=== PATIENT | female | born 1990 | race Caucasian/White ===

== ENCOUNTER 2018-01-05 20:26 | Emergency (ER) | payer OTHER ==
[~2018-01-05] VITALS: Ht 160 cm; Wt 79.0 kg
[2018-01-05 20:35] VITALS: BP 117/70
[2018-01-05] MEDS ORDERED: CEPH-571 PO (20:59)
== END 2018-01-05 21:07 | disposition home or self-care (01) ==
LOC: ER 20:27
DX: L03.311 Cellulitis of abdominal wall (principal); Z88.6 Allergy status to analgesic agent
CPT/HCPCS: 99283

== ENCOUNTER 2018-10-28 01:33 | Emergency (ER) | payer SELFPAY ==
[~2018-10-28] VITALS: Ht 149.9 cm; Wt 76.5 kg
[~2018-10-28 01:33] MED LIST: CEPH-571 PO
[2018-10-28 01:39] VITALS: BP 112/79
--- NOTE | 2018-10-28 02:37 | NUR ---
DISCUSSED PT'S PAIN WITH EDMD GORMAN; NEW ORDER RECEIVED FOR IBUPROFEN AND TORADOL.
[2018-10-28] MEDS ORDERED: ibuprofen tablet 400 MG TABLET PO ONE (02:40)
[2018-10-28] MEDS ORDERED: ketorolac trometh inj. 60 MG/2 ML VIAL IM ONE (02:40)
== END 2018-10-28 02:59 | disposition home or self-care (01) ==
LOC: ER 01:34
DX: M25.522 Pain in left elbow (principal); M79.602 Pain in left arm; Z79.899 Other long term (current) drug therapy; W01.0XXA Fall on same level from slipping, tripping and stumbling without subsequent striking against object, initial encounter; Y93.01 Activity, walking, marching and hiking; Y92.814 Boat as the place of occurrence of the external cause; Y99.8 Other external cause status
CPT/HCPCS: 73080; 96372; 99283; J1885

== ENCOUNTER 2019-05-03 09:56 | Emergency (ER) | payer BC ==
[~2019-05-03] VITALS: Ht 149.9 cm; Wt 72.3 kg
[2019-05-03 10:05] VITALS: BP 121/76
[2019-05-03] MEDS ORDERED: TETanus/Pertussis (Acell)/Diphther VAC/PF (Tdap-Adult) 0.5ml syringe IMVAC ONE (11:00)
[2019-05-03] MEDS ORDERED: AMOX-422 PO (11:02)
[2019-05-03] MEDS ORDERED: ibuprofen tablet 400 MG TABLET PO ONE (11:15)
== END 2019-05-03 11:24 | disposition home or self-care (01) ==
LOC: ER 09:57
DX: S61.231A Puncture wound without foreign body of left index finger without damage to nail, initial encounter (principal); S60.511A Abrasion of right hand, initial encounter; Z88.2 Allergy status to sulfonamides; W54.0XXA Bitten by dog, initial encounter; Y93.89 Activity, other specified; Y92.89 Other specified places as the place of occurrence of the external cause; Y99.9 Unspecified external cause status
CPT/HCPCS: 73130; 90471; 90715; 99283

== ENCOUNTER 2025-02-02 09:22 | Emergency (ER) | payer BC, OTHER ==
[~2025-02-02] VITALS: Ht 152.4 cm; Wt 79.3 kg
[~2025-02-02 09:22] MED LIST changes: +ALBU6.7H14 INH
[2025-02-02 09:42] VITALS: TEMP 98.4; O2SAT 100
[2025-02-02 10:14] LABS: URINE HCG NEGATIVE (NEG)
[2025-02-02 10:15] LABS: LEUKOCYTE ESTERASE ,URINE NEGATIVE (Neg); NITRITES, URINE NEGATIVE (Neg); OCCULT BLOOD,URINE TRACE-INTACT (Neg)
[2025-02-02] MEDS: ketorolac trometh 15mg/ml vial 15 MG/ML ML IM ONE (10:23)
[2025-02-02 10:25] LABS: UA COLLECTION TYPE CLN CATCH MIDSTREAM
[2025-02-02 10:36] LABS: SQUAMOUS EPITHELIAL CELL,UR MANY /LPF (FEW)
[2025-02-02 11:19] VITALS: BP 108/72; PULSE 77; RESP 13
--- NOTE | 2025-02-02 11:24 | Physician Documentation ---
History of Present Illness ~ Chief Complaint: Abdominal Pain Stated Complaint: POSS OVARIAN CYST Time Seen by MD: 09:55 OK to notify your PCP?: Yes Primary Medical Doctor: NILS Source: patient Mode of Arrival: POV Exam Limitations: no limitations HPI 34-year-old female presents with left-sided lower abdominal/pelvic pain. She does have a history of ovarian cysts and states this feels the same. She originally went into [facility] and was told to come here to rule out an ovarian torsion. Denies chance of . Last menstrual period 2 weeks ago. She has a history of having a very large ovarian cyst on the left side which needed to be surgically removed. Medication Reconciliation Allergies: Coded Allergies: Penicillins (Verified Allergy, Unknown, RASH, 02/02/25) Sulfa (Sulfonamide Antibiotics) (Verified Allergy, Unknown, 08/20/22) fluoxetine (Verified Allergy, Unknown, 08/20/22) morphine (Verified Allergy, Unknown, 08/20/22) sertraline (Verified Allergy, Unknown, 08/20/22) Scheduled Albuterol Sulfate (Proventil Hfa), 2 PUFFS INH Q6H Cephalexin (Keflex), 1 CAP PO Q6H Past Medical History Past Medical History: No Pertinent History Past Surgical History: no surgical history Drug Use: none Lives In: Home Occupation: employed Review of Systems All Other Systems at this time: Reviewed and Negative Physical Exam Vital Signs: RN Vital Signs have been reviewed: Yes, Temperature: 98.4, Source: Oral, Heart Rate: 77, Respiratory Rate: 13, BP: 108/72, Pulse Oximetry: 100, Weight: 79.300 Oxygen Flow Rate: 0 Pulse Oximetry Reflects: adequate oxygenation Physical Exam General: Alert, no apparent distress. HEENT: PERRL, EOMI, no injection, moist mucous membranes. Neck: Full range of motion. Respiratory: Lungs clear, no respiratory distress. Chest: No accessory muscle use. Cardiovascular: Regular rate and rhythm, no murmurs. Gastrointestinal: Soft, nondistended. Bowels sounds present. Palpation in left lower quadrant and over left ovary. Extremities: Normal range of motion, no deformity. Neurologic: Oriented x4. Psychiatric: Normal mood and affect. Skin: Normal color, warm and dry. No edema, no ecchymosis. Progress Results/Orders Reviewed/noted all lab results: Yes Results/Orders Orders - SHERMAN,DAVINA D TELEGRAPHIC SERVICE DISPATCHER Ultrasound Pelvis W/Orwo Dplx (02/02/25 09:52) Completed Orders - DAVINA JENNINGS TELEGRAPHIC SERVICE DISPATCHER Hcg, Ur Ql (02/02/25 09:48) Ketorolac Trometh 15mg/Ml Vial (Toradol (02/02/25 09:50) Ultrasound Pelvis W/Orwo Dplx (02/02/25 09:52) Ua W/Microscopic, Cult If Ind (02/02/25 09:55) Medications Received in ER Medications (Trade) Dose Ordered Sig/Pilar Route PRN Reason Start Time Stop Time Status Last Admin Dose Admin (Toradol injection) 15 mg ONCE ONCE IM 02/02/25 09:50 02/02/25 09:51 DC 02/02/25 10:23 15 MG Vital Signs 02/02/25 02/02/25 09:42 11:19 Temp 98.4 Pulse 86 77 Resp 16 13 B/P (MAP) 136/85 108/72 (84) Pulse Ox 100 O2 Flow Rate 0 0 Laboratory Tests Test 02/02/25 09:55 Urine Specimen Description Cln catch midstream Urine Color Yellow Urine Clarity Cloudy Urine pH 6.0 Urine Specific [place] 1.025 Urine Protein Negative Urine Glucose (UA) Negative Urine Ketones Negative Urine Occult Blood Trace-intact Urine Nitrite Negative Urine Bilirubin Negative Urine Urobilinogen 0.2 Urine Leukocyte Esterase Negative Urine RBC 0-2 Urine WBC 0-4 Urine Squamous Epithelial Cells Many Urine Bacteria 1+ Urine Culture Indicated Not ind Volume Urine Centrifuged 10 ml Urine HCG, Qualitative Negative Urine Comment EKG/XRAY/CT/US/VASC/MRI Ultrasound : Impression Pelvic ultrasound as interpreted by me shows: Small amount of free fluid in the pelvis lateralized on the left ovary/adnexa, normal Doppler of left ovary. 1.7 cm left ovarian cyst. No ovarian torsion Medical Decision Making Additional information obtaine: old records Findings History of left ovarian cyst with 1 need to be surgically removed. Toradol was administered for pain while in the department, with relief. There was a possibility of ovarian torsion for which we did ultrasound. Ultrasound shows there is a small 1.7 cm left ovarian cyst as well as some free fluid in the left pelvis ovarian area. There is good blood flow to that ovary with no evidence of torsion. Urinalysis is negative for blood or infection. Has a follow up appointment with her ironer or presser next week, advised to keep that appointment and return back here for any new or worsening symptoms. Urinary Diff Dx:Considerations: Include: Appendicitis, Bowel obstruction, Ova mariola torsion, Pyelonephritis, UTI Genital Diff Dx:Considerations: Include: Dsymenorrhea, Ectopic , Menorrhagia, Menometrorrhagia, Myomatous uterus Departure Disposition: 01 HOME / SELF CARE / HOMELESS Impression: Primary Impression: Cyst of left ovary Condition: Stable Discharge Instructions: Ovarian Cyst, [id number] Additional Instructions: Continue to follow up with your OBGYN as scheduled. Today your ultrasound shows a small ovarian cyst with some additional fluid around it. There is great blood flow to the left ovary, no evidence of torsion. Urinalysis was negative for i nfection or blood. Return back here for any new or worsening symptoms. Referrals: NO PRIMARY CARE PROVIDER (PCP) Education Educated: Patient Educated regarding: diagnosis, treatment, prognosis, need for follow up Additional Comment Medical Screen Exam This patient recieved a medical screening examination. After reviewing the individual's medical complaints with presenting symptoms and performing an appropriate physical examination, it was determined that no immediate life- threatening emergency medical condition is present. This individual is also not a women having contractions. Signature Scribe Signature: . Attestation: Scribed for Davina Jennings by Davina Moses NP . 02/02/25 11:45 Parts of this note were created using [employer] voice recognition software program. While efforts were made to correct any mistakes made by this voice recognition software program, nonsensical phrases may remain in this note. In addition, there may be errors and syntax, grammar, content and spelling. DAVINA JENNINGS Feb 02, 2025 11:24
--- NOTE | 2025-02-02 11:28 | RADIOLOGY REPORT ---
Technique: Real-time ultrasound images through the pelvis using a transabdominal transducer. For better evaluation of the ovaries and endometrial stripe, an endovaginal transducer was used. Indication: r/o left ovary cyst vs torsion Comparison: None Findings: The uterus measures 7.7 cm. The endometrial stripe measures 11 mm. There are no focal masses. There is no abnormal flow in the endometrium. Right ovary measures 2.9 x 1.8 x 2.3 cm. Normal flow on color doppler images. No focal masses are identified. Left ovary measures 3.9 x 2.4 x 3.4 cm. Normal flow on color doppler images. There is a 1.7 cm left ovarian cyst Small amount of free pelvic fluid, lateralized course along the left ovaries/ adnexa. Impression: Small amount of free fluid in the pelvis, lateralized on the left ovary/adnexa. A 1.7 cm left ovarian cyst.
== END 2025-02-02 11:30 | disposition home or self-care (01) ==
LOC: ER 09:23
DX: N83.202 Unspecified ovarian cyst, left side (principal); Z88.0 Allergy status to penicillin; Z88.2 Allergy status to sulfonamides; Z88.5 Allergy status to narcotic agent
CPT/HCPCS: 76830; 76856; 81001; 81025; 93976; 96372; 99285; J1885